=== PATIENT | male | born 1955 | race Caucasian/White ===

== ENCOUNTER 2016-12-06 10:16 | Outpatient (CLI) | payer OTHER ==
[~2016-12-06 10:16] MED LIST: AMITRIPTYLINE H10 MG PO; FLUOXETINE HCL20 MG PO; GLIPIZIDE5 MG PO; HARD NAILS2.5 MG PO; HYDROMORPHONE HC2 MG PO; LISINOPRIL10 MG PO; METFORMIN HCL500 MG PO; MULTIVITAMIN1 TAB PO; NEURONTIN300 MG PO; OMEGA 31000 MG PO; OMEPRAZOLE20 M1 PO; SIMVASTATIN20 MG PO; VITAMIN C TR500 M1 PO
== END 2016-12-06 23:00 ==
LOC: LAB SRH 10:16
DX: E11.621 Type 2 diabetes mellitus with foot ulcer (principal); L97.519 Non-pressure chronic ulcer of other part of right foot with unspecified severity
CPT/HCPCS: 90047; 90074; 91286; 92710; 95059; 99307

== ENCOUNTER → 2016-12-07 | Outpatient (CLI) | payer OTHER ==
--- NOTE | 2016-12-07 17:23 | DIAGNOSTIC IMAGING REPORT ---
PROCEDURE: US VENOUS - BILATERAL EXT INDICATION: Nonhealing wound right foot. TECHNIQUE: Duplex sonography of the deep and superficial venous system in both lower extremities was performed. Compression and augmentation techniques were used. The patient was scanned in the upright position. Surveillance of the venous system during Valsalva maneuver when appropriate was performed. COMPARISON: None. FINDINGS: There is reflux in the right common femoral vein (2.9 seconds). Superficial femoral and greater saphenous veins are competent. Right greater saphenous vein measures 3.3 mm proximally, 2.2 mm mid and 3.8 mm distally. There is venous reflux of the left common femoral vein (2.5 seconds). Superficial femoral and greater saphenous veins are competent. Greater saphenous vein measures 4.3 mm proximally, 2.7 mm mid and 2.2 mm distally. IMPRESSION: 1. Venous insufficiency of the common femoral veins bilaterally.
--- NOTE | 2016-12-07 17:45 | DIAGNOSTIC IMAGING REPORT ---
PROCEDURE: US ART LOWER EXT WITH JULIANA-B/L INDICATION: Nonhealing right foot wound. Initial encounter jose angel TECHNIQUE: Preexercise ABIs were performed. Color Doppler duplex imaging of the lower extremities was obtained. COMPARISON: None. FINDINGS: RIGHT LOWER EXTREMITY: ABIs: Resting ABIs: Posterior tibial 0.63, dorsalis pedis 0.75. VESSELS: Mild atherosclerosis. Normal triphasic wave form from the external iliac to the proximal superficial femoral artery with monophasic wave form to the ankle. There is an occluded segment of the distal posterior tibial artery. RIGHT LOWER EXTREMITY PEAK SYSTOLIC VELOCITIES: External iliac: 114 cm/second. Common femoral artery: 79 cm/second. Profunda femoral artery: 38 cm/second. Proximal superficial femoral artery: 95 cm/second. Mid superficial femoral artery: 50 cm/second. Distal superficial femoral artery: 146 cm/second. Popliteal artery: 53 cm/second. Proximal posterior tibial artery: 69 cm/second. Proximal anterior tibial artery: 55 cm/second. Distal posterior tibial artery: 26 cm/second. (Via collaterals) Dorsalis pedis artery: 54 cm/second. LEFT LOWER EXTREMITY: ABIs: Resting ABIs: Posterior tibial 1.03 and dorsalis pedis 1.0. VESSELS: Minor atherosclerosis. Triphasic wave form from the external iliac to the distal SFA with biphasic wave form down to the ankle and in the profunda femoris. LEFT LOWER EXTREMITY PEAK SYSTOLIC VELOCITIES: External iliac: 129 cm/second. Common femoral artery: 79 cm/second. Profunda femoral artery: 35 cm/second. Proximal superficial femoral artery: 84 cm/second. Mid superficial femoral artery: 77 cm/second. Distal superficial femoral artery: 69 cm/second. Popliteal artery: 61 cm/second. Proximal posterior tibial artery: 42 cm/second. Proximal anterior tibial artery: 25 cm/second. Distal posterior tibial artery: 73 cm/second. Dorsalis pedis artery: 15 cm/second. IMPRESSION: 1. Right lower extremity: Moderate resting arterial insufficiency. Mild atherosclerosis with high-grade stenosis of the distal SFA. 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 2. Left lower extremity: No evidence of resting arterial insufficiency.
== END ==
LOC: US SRH 10:00
DX: I87.2 Venous insufficiency (chronic) (peripheral) (principal); I73.9 Peripheral vascular disease, unspecified; S91.302A Unspecified open wound, left foot, initial encounter